=== PATIENT | male | born 1990 | race Hispanic/Latino ===

== ENCOUNTER 2020-08-13 07:28 | Day surgery (SDC) | payer MEDICAID ==
[~2020-08-13] VITALS: Ht 170.2 cm; Wt 117.9 kg
[2020-08-13] VITALS (19 sets, daily range): BP systolic 110–153; BP diastolic 59–89
[~2020-08-13 07:28] MED LIST: 0.9%NACL 1000ML 1,000 ML IV ONE; TRAM50TA4 PO
[2020-08-13] MEDS ORDERED: PROPOFOL 10 MG/ML 20ML VIAL IV ONE (09:26)
[2020-08-13] MEDS ORDERED: FENTANYL CITRATE PF 50 MCG/1 ML 2ML VIAL ONE (09:26)
[2020-08-13] MEDS ORDERED: SUCCINYLCHOLINE 200MG/10ML SYR ONE (09:27)
[2021-01-27] MEDS ORDERED: LIPA1CAP18 PO (11:09)
[2021-01-27] MEDS ORDERED: SUCR1ORA15 PO (11:09)
[2021-02-12] MEDS ORDERED: ACET1TAB25 PO (17:04)
== END 2020-08-13 12:25 | disposition home or self-care (01) ==
LOC: DAH 07:28 → ENDO 07:28
PROVIDERS: ATTEND Internal Medicine
DX: K86.2 Cyst of pancreas (principal); Z20.822 Contact with and (suspected) exposure to COVID-19; K86.9 Disease of pancreas, unspecified; K59.04 Chronic idiopathic constipation; J45.909 Unspecified asthma, uncomplicated; D50.9 Iron deficiency anemia, unspecified; Z80.0 Family history of malignant neoplasm of digestive organs; Z86.010 Personal history of colon polyps; Z98.890 Other specified postprocedural states; Z79.899 Other long term (current) drug therapy
CPT/HCPCS: 43259; A4215 ×2; A4221; A4222; A4223; A4606; A4620; A4657 ×2; A4663; C9803; J0330; J2704; J3010; J7030; U0003; G0121

== ENCOUNTER 2020-09-19 14:35 | Emergency (ER) | payer MEDICAID ==
[~2020-09-19 14:35] MED LIST changes: -0.9%NACL 1000ML 1,000 ML IV ONE
[2020-09-19 15:25] LABS: APPEARANCE,URINE Clear (CLEAR); BILIRUBIN,URINE Small (NEGATIVE); COLOR,URINE Dark Yellow (YELLOW); GLUCOSE, URINE (UA) Negative (NEGATIVE); KETONES,URINE Trace mg/dL (NEGATIVE); LEUKOCYTE ESTERASE ,URINE Trace (NEGATIVE); NITRATE,URINE Negative (NEGATIVE); OCCULT BLOOD,URINE Negative (NEGATIVE); PH,URINE 5.5 (5.0-8.0); PROTEIN,URINE POS 1+ mg/dL (NEGATIVE)
[2020-09-19 15:26] LABS: BASOPHILS % (AUTO) 0.4 % (0.0-5.0); EOSINOPHILS % (AUTO) 0.8 % (0.0-8.0); HEMATOCRIT 41.5 % (42-54); MEAN CORPUSCULAR HEMOGLOBIN 29.7 pg (27.0-33.0); MEAN CORPUSCULAR HGB CONC 32.8 g/dL (32.0-36.0); MEAN CORPUSCULAR VOLUME 90.6 fL (79-99); MONOCYTES % (AUTO) 8.4 % (3.0-13.0); NEUTROPHILS % (AUTO) 70.1 % (40.0-77.0); PLATELET COUNT (AUTO) 336 K/uL (130-400); RED BLOOD CELL COUNT(AUTO) 4.58 MIL/uL (4.50-6.20); RED CELL DISTRIBUTION WIDTH 13.1 % (11.0-15.5)
[2020-09-19 15:38] LABS: BACTERIA,URINE Few /HPF (None Seen); MUCUS,URINE Many LPF (None Seen); SQUAMOUS EPITHELIAL CELL,UR 0-2 /HPF (0-2)
[2020-09-19 15:43] LABS: CREATININE 0.9 mg/dL (0.5-1.5); POTASSIUM 3.8 mmol/L (3.5-5.1)
[2020-09-19 15:48] LABS: ALBUMIN 3.4 g/dL (3.5-5.0); TOTAL PROTEIN, SERUM 8.3 g/dL (6.0-8.3)
== END 2020-09-19 16:13 | disposition left against medical advice (07) ==
LOC: EDH 14:35
DX: R10.12 Left upper quadrant pain (principal); R10.32 Left lower quadrant pain; R11.2 Nausea with vomiting, unspecified; J45.909 Unspecified asthma, uncomplicated
CPT/HCPCS: 36415; 80053; 81001; 83605; 83690; 85025

== ENCOUNTER 2021-01-28 09:05 | Day surgery (SDC) | payer MEDICAID ==
[2021-01-28] VITALS (18 sets, daily range): BP systolic 113–136; BP diastolic 72–92
[~2021-01-28] VITALS: Ht 170.2 cm; Wt 117.9 kg
[~2021-01-28 09:05] MED LIST changes: +INDOMETHACIN 50 MG SUPP.RECT RC SCH; +LIPA1CAP18 PO; +SUCR1ORA15 PO; -TRAM50TA4 PO
[2021-01-28] MEDS ORDERED: 0.9%NACL 1000ML 1,000 ML IV ONE (10:09)
[2021-01-28] MEDS ORDERED: IOHEXOL-350 50ML VIAL IV ONE (12:11)
[2021-01-28] MEDS ORDERED: FENTANYL CITRATE PF 50 MCG/1 ML 2ML VIAL ONE ×2 (12:24→12:57)
[2021-01-28] MEDS ORDERED: PROPOFOL 10 MG/ML 20ML VIAL IV ONE (12:24)
== END 2021-01-28 16:15 | disposition home or self-care (01) ==
LOC: DAH 09:05 → ENDO 09:05
PROVIDERS: ATTEND Internal Medicine
DX: K85.10 Biliary acute pancreatitis without necrosis or infection (principal); Z20.822 Contact with and (suspected) exposure to COVID-19; K86.2 Cyst of pancreas; K86.81 Exocrine pancreatic insufficiency; K86.89 Other specified diseases of pancreas; K59.04 Chronic idiopathic constipation; K31.89 Other diseases of stomach and duodenum; I10 Essential (primary) hypertension; J45.909 Unspecified asthma, uncomplicated; D50.9 Iron deficiency anemia, unspecified; Z90.49 Acquired absence of other specified parts of digestive tract; Z86.010 Personal history of colon polyps; Z95.0 Presence of cardiac pacemaker
CPT/HCPCS: 43237; 43260; 74330; 87635; A4215 ×2; A4221; A4222; A4223; A4606; A4657 ×2; A4663; C1769 ×2; C1773; C9803; J3010 ×2; J3490 ×2; J7030; J2704; Q9967

== ENCOUNTER 2021-02-13 06:54 | Day surgery (SDC) | payer MEDICAID ==
[~2021-02-13 06:54] MED LIST changes: +ACET1TAB25 PO; -INDOMETHACIN 50 MG SUPP.RECT RC SCH; -SUCR1ORA15 PO
[2021-02-13 07:15] VITALS: BP 106/63
[2021-02-13] MEDS ORDERED: 0.9%NACL 1000ML 1,000 ML IV ONE (07:30)
[2021-02-13] MEDS ORDERED: ONDANSETRON 4MG INJ ONE (07:36)
[2021-02-13] MEDS ORDERED: DEXAMETHASONE SOD PHOSPHATE 10MG/ML 1ML VIAL ONE (07:36)
[2021-02-13] MEDS ORDERED: FENTANYL CITRATE PF 50 MCG/1 ML 2ML VIAL ONE (07:36)
[2021-02-13] MEDS ORDERED: MIDAZOLAM HCL 1 MG/ML 2ML VIAL ONE (07:36)
[2021-02-13] MEDS ORDERED: SUCCINYLCHOLINE CHLORIDE 20 MG/ML 10 ML VIAL ONE ×2 (07:36→07:37)
[2021-02-13] MEDS ORDERED: ROCURONIUM 10MG/1ML SYR 10 MG/ML ML ONE (07:36)
[2021-02-13] MEDS ORDERED: LIDOCAINE PF 100MG/5ML (2%) SYRINGE 5ML ONE ×2 (07:36→07:37)
[2021-02-13] MEDS ORDERED: NEOSTIGMINE 5MG/5ML SYR IV ONE (07:36)
[2021-02-13] MEDS ORDERED: GLYCOPYRROLATE 1 MG/5 ML SYRINGE ONE (07:36)
[2021-02-13] MEDS ORDERED: PROPOFOL 10 MG/ML 20ML VIAL IV ONE (07:36)
[2021-02-13] MEDS ORDERED: IOHEXOL-350 50ML VIAL IV ONE (08:04)
[2021-02-13] MEDS ORDERED: INDOMETHACIN 50 MG SUPP.RECT RC SCH (08:30)
== END 2021-02-13 10:40 | disposition home or self-care (01) ==
LOC: DAH 06:54 → ENDO 06:54
PROVIDERS: ATTEND Internal Medicine
DX: K83.1 Obstruction of bile duct (principal); Z20.822 Contact with and (suspected) exposure to COVID-19; K86.3 Pseudocyst of pancreas; K59.04 Chronic idiopathic constipation; K85.10 Biliary acute pancreatitis without necrosis or infection; K86.81 Exocrine pancreatic insufficiency; E66.9 Obesity, unspecified; J45.909 Unspecified asthma, uncomplicated; D50.9 Iron deficiency anemia, unspecified; Z86.010 Personal history of colon polyps; Z90.49 Acquired absence of other specified parts of digestive tract; Z68.39 Body mass index [BMI] 39.0-39.9, adult
CPT/HCPCS: 43261; 43273; 74329; 87635; A4215 ×2; A4221; A4222; A4223; A4606; A4657; A4663; C1769 ×2; C9803; J0330 ×2; J1100; J2405; J2710; J3010; J3490 ×5; J7030 ×2; 74330; G9654; J2001; J2250; J2704; Q9967